=== PATIENT | female | born 1985 | race Asian ===

== ENCOUNTER → 2020-05-25 | Outpatient (CLI) | payer OTHER ==
[2016-05-21 13:59] VITALS: BP 122/78
[~2020-05-25] MED LIST: DOCU100C28 PO; IOHEXOL 180 MG/ML 10 ML VIAL. INT UTERIN ONE; METH-37 PO; NORE-88 PO; OXYC1TAB15 PO; TRAM-48 PO
--- NOTE | 2020-05-26 14:34 | KCIC ---
EXAMINATION: HYSTEROSALPINGOGRAM W/INJ, 05/25/2020 10:30 AM CLINICAL INDICATION: Infertility. TECHNIQUE: The procedure was discussed with the patient and her questions were answered. A speculum was placed within the vagina and the cervix was identified. Next, a 5 [place] hysterosalpingogram catheter was advanced through the cervical os and the 1.5 cc balloon was inflated. Approximately 15 mL of Omnipaque 180 was then injected under fluoroscopic monitoring and multiple images were obtained. Total fluoroscopic time was 65 seconds. FINDINGS: The uterus is normal in morphology without filling defects. Fallopian tubes are normal in appearance and patent. IMPRESSION: Normal hysterosalpingogram. Electronically signed by: Elisabeth Roth MD (05/26/2020 2:31 PM) [id number]
== END | disposition home or self-care (01) ==
LOC: KCIC 10:36
PROVIDERS: ATTEND Obstetrics & Gynecology
DX: N91.2 Amenorrhea, unspecified (principal); N97.9 Female infertility, unspecified; J45.909 Unspecified asthma, uncomplicated; Z79.899 Other long term (current) drug therapy; Z98.890 Other specified postprocedural states; Z88.1 Allergy status to other antibiotic agents; Z91.040 Latex allergy status; Z87.891 Personal history of nicotine dependence; Z72.89 Other problems related to lifestyle
CPT/HCPCS: 58340; 74740; Q9965